=== PATIENT | male | born 2000 | race Caucasian/White ===

== ENCOUNTER 2020-04-24 11:31 | Inpatient (IN) | payer OTHER ==
--- NOTE | 2020-04-24 11:41 | BHS.RME ---
Substance Use & Tx History - Substance Use History Other Opiates/Synthetics Substance amount: Percocet 2-3 tabs Frequency of use: Less than 3 times per week Substance route: Oral Date of Last Use: 04/17/20 Marijuana/Hashish Substance amount: 2 blunts Frequency of use: Daily Substance route: Smoking Date of Last Use: 04/17/20 Physical/Psych/Mental Status - Behavior General Behavior: Decreased activity Eye Contact: Normal - Cooperativeness Cooperativeness: Cooperative - Thinking Thought Processes: Tight Thought content: Future oriented - Physical Health Problems Is patient presently having any pain?: No Does patient presently have any injuries (include location): No Does patient currently have a fever: No COWS - Scale Resting Pulse: 1= [place] 81-100 Sweatin= Chills/Flushing Restless Observation: 0= Sits Still Pupil Size: 1= Pupils >than Normal Bone or Joint Aches: 0= None Runny Nose/ Eye Tearin= None GI Upset > 30mins: 0= None Tremor Observation: 0= None Yawning Observation: 0= None Anxiety or Irritability: 0= None Goose Flesh Skin: 0=Smooth Skin COWS Score: 3
[2020-04-24 15:33] VITALS: BMI 25.7
--- NOTE | 2020-04-24 15:48 | HP ---
COWS - Scale Resting Pulse: 1= [place] 81-100 Sweatin= Chills/Flushing Restless Observation: 0= Sits Still Pupil Size: 1= Pupils >than Normal Bone or Joint Aches: 0= None Runny Nose/ Eye Tearin= None GI Upset > 30mins: 0= None Tremor Observation: 0= None Yawning Observation: 0= None Anxiety or Irritability: 0= None Goose Flesh Skin: 0=Smooth Skin COWS Score: 3 CIWA Score - Admission Criteria OASAS Guidelines: Admission for Medically Managed Detox: Requires at least one of the followin. CIWA greater than 12 2. Seizures within the past 24 hours 3. Delirium tremens within the past 24 hours 4. Hallucinations within the past 24 hours 5. Acute intervention needed for co occurring medical disorder 6. Acute intervention needed for co occurring psychiatric disorder 7. Severe withdrawal that cannot be handled at a lower level of care (continued vomiting, continued diarrhea, abnormal vital signs) requiring intravenous medication and/or fluids 8. Admitting History and Physical - Admission Chief Complaint: Mr. Lorenzana is a 19 yo young man who presents for rehab admission. History of Present Illness: Mr. Lorenzana is a 19 yo young man who presents for rehab admission. He states "that night scared me, I want to get better for myself and my family". He was approved for admission yesterday, but no beds were available. He then was discharged from [facility], went home and presents today for rehab admission. Rapid COVID is negative today. He was at [facility] for an overdose. Of note UDS: benzo, THC and pupils 3mm Pt became unresponsive at [facility]. EMS called, tx with narcan In ED of [facility]: treated with another dose of narcan Labs notable for elevated WBC then trended down to normal, HIV negative, Hep C neg, blood and urine cultures negatie Chest xray unremarkable PMH: none PSH: none Psych: hx of ADHD, bipolar, xanax misuse, opiate use, prior psych admission at [facility] February 2016, hx of auditory hallucinations in the context of intoxication ED at [facility] SOC: lives with parents Legal: multiple arrests for stealing, drug related charges FH: 3 week old daughter at home Substance Use History Other Opiates/Synthetics Substance amount: Percocet 2-3 tabs Frequency of use: Less than 3 times per week Substance route: Oral Date of Last Use: 04/17/20 Marijuana/Hashish Substance amount: 2 blunts Frequency of use: Daily Substance route: Smoking Date of Last Use: 04/17/20 Substance Use History Other Opiates/Synthetics Substance amount: Percocet 2-3 tabs Frequency of use: daily Substance route: Oral Date of Last Use: 04/17/20 First use age 19y Marijuana/Hashish Substance amount: 2 blunts Frequency of use: Daily Substance route: Smoking Date of Last Use: 04/17/20 History Source: Patient Limitations to Obtaining History: No Limitations Admission ROS S - HPI Allergies/Adverse Reactions: Allergies Allergy/AdvReac Type Severity Reaction Status Date / Time No Known Allergies Allergy Verified 04/24/20 12:17 Exam Limitations: No Limitations - Ebola screening Have you traveled outside of the country in the last 21 days: No Have you been sick,other than usual withdrawal symptoms: No Do you have a fever: No - Review of Systems Constitutional: Loss of Appetite, Changes in sleep EENT: reports: No Symptoms Reported Respiratory: reports: No Symptoms reported Cardiac: reports: No Symptoms Reported GI: reports: No Symptoms Reported : reports: No Symptoms Reported Musculoskeletal: reports: No Symptoms Reported Integumentary: reports: No Symptoms Reported Neuro: reports: No Symptoms reported Endocrine: reports: No Symptoms Reported Hematology: reports: No Symptoms Reported Psychiatric: reports: No Sypmtoms Reported Patient History - Smoking Cessation Smoking history: Never smoked Initiated information on smoking cessation: No Admission Physical Exam [facility] - Vital Signs Vital Signs: Vital Signs - 24 hr 04/24/20 15:31 Temperature 97.6 F Pulse Rate 84 Respiratory 18 Rate Blood Pressure 107/69 - Physical General Appearance: Yes: No Apparent Distress, Nourished, Appropriately Dressed HEENTM: Yes: EOMI, Hearing grossly Normal, Normocephalic, Normal Voice Respiratory: Yes: Lungs Clear, No Respiratory Distress, No Accessory Muscle Use Neck: Yes: Within Normal Limits, Supple Breast: Yes: Breast Exam Deferred Cardiology: Yes: Regular Rhythm, Regular Rate Abdominal: Yes: Normal Bowel Sounds, Non Tender Genitourinary: Yes: Other (deferred) Back: Yes: Normal Inspection Musculoskeletal: Yes: full range of Motion, Gait Steady Extremities: Yes: Normal Inspection, Normal Range of Motion, Non-Tender Neurological: Yes: Alert, Normal Response Integumentary: Yes: Within Normal Limits Cleared for Admission S - Detox or Rehab [facility] Level of Care: Medically Supervised Breathalyzer - Breathalyzer Breathalyzer: 0 Urine Drug Screen - Test Device Lot number: [id number] Expiration date: 10/24/21 - Control Is test valid?: Yes - Results Drug screen NEGATIVE: No Urine drug screen results: THC-Marijuana Inpatient Rehab Admission - Rehab Decision to Admit Inpatient rehab admission?: Yes - Initial Determination Are CD services needed?: Yes Free of communicable disease: Yes Not in need of hospitalization: Yes - Rehab Admission Criteria Previous failed treatment: Yes Poor recovery environment: Yes Comorbidities: Yes Lacks judgement: Yes Patient is meeting Inpatient Rehab admission criteria:: Yes
[2020-04-24] MEDS ORDERED: ACETAMINOPHEN 325 MG TABLET (FP) PO PRN (15:53)
[2020-04-24] MEDS ORDERED: guaiFENesin 200 MG/10 ML 10 ML UNIT-DOSE CUPS PO PRN (15:53)
[2020-04-24] MEDS ORDERED: MAG HYDROX/AL HYDROX/SIMETH 30 ML UNIT-DOSE CUP PO PRN (15:53)
[2020-04-24] MEDS ORDERED: IBUPROFEN 400 MG TABLET (FP) PO PRN (15:53)
[2020-04-24] MEDS ORDERED: LOPERAMIDE HCL 2 MG CAPSULE PO PRN (15:53)
[2020-04-24] MEDS ORDERED: MAGNESIUM CITRATE 300 ML BOTTLE PO PRN (15:53)
[2020-04-24] MEDS ORDERED: P-EPHED 60MG/TRIPROLIDI 2.5MG TABLET PO PRN (15:53)
[2020-04-24] MEDS ORDERED: MAGNESIUM HYDROX 2400MG/30ML ORAL SUSPENSION 30 ML CUP PO PRN (15:53)
[2020-04-24] MEDS ORDERED: TUBERCULIN PPD 5 TU/0.1ML VIAL ID ONE (17:04)
[2020-04-24] MEDS: hydrOXYzine PAMOATE 25 MG CAPSULE (FP) PO SCH ×2 (17:20→21:47)
[2020-04-24 17:52] LABS: HEMATOCRIT 45.7 % (35.4-49); HEMOGLOBIN 15.5 GM/dL (11.7-16.9); MCH 30.8 pg (25.7-33.7); MCHC 33.9 g/dl (32.0-35.9); MEAN CELL VOLUME 90.7 fl (80-96); MEAN PLT VOLUME 11.7 fl (7.5-11.1); PLATELET COUNT 208 K/MM3 (134-434); RBC 5.04 M/mm3 (4.00-5.60); RDW 13.5 % (11.9-15.9); WHITE BLOOD COUNT 7.4 K/mm3 (4.0-10.0)
[2020-04-24 17:58] LABS: ALBUMIN 4.3 g/dl (3.4-5.0); BILIRUBIN,TOTAL 1.3 mg/dL (0.2-1); BLOOD UREA NITROGEN 9.8 mg/dL (7-18); CREATININE 0.8 mg/dL (0.55-1.3); POTASSIUM 4.2 mmol/L (3.5-5.1); TOT PROT 9.1 g/dl (6.4-8.2)
[2020-04-24 18:21] LABS: SICKLE CELL SCREEN NEGATIVE (NEGATIVE)
[2020-04-24] MEDS: MELATONIN 5 MG TABLETS PO SCH (21:47)
[2020-04-24] MEDS: THIAMINE HCL 100 MG TABLET (FP) PO SCH (21:48)
[2020-04-25 08:12] VITALS: BP 132/63; PULSE 91; TEMP 97.7
[2020-04-25] MEDS: hydrOXYzine PAMOATE 25 MG CAPSULE (FP) PO SCH ×3 (08:46→13:06)
[2020-04-25] MEDS: PRENATAL VITAMINS W/ FOLIC ACID TABLET (FP) PO SCH (10:44)
--- NOTE | 2020-04-25 13:16 | CONSULT ---
[facility] Psychiatric Consult - Data Date of interview: 04/25/20 Admission source: [facility] Identifying data: Patient is a 19 year old single male, father of one, unemployed, domiciled, and is financially supported by family. This is patient's first admission to rehab at [facility]. Patient admitted to for opiate dependence. Substance Abuse History: Substance Use History. Other Opiates/Synthetics. Substance amount: Percocet 2-3 tabs. Frequency of use: Less than 3 times per week. Substance route: Oral. Date of Last Use: 04/17/20. Marijuana/Hashish. Substance amount: 2 blunts. Frequency of use: Daily. Substance route: Smoking. Date of Last Use: 04/17/20. Substance Use History. Other Opiates/Synthetics. Substance amount: Percocet 2-3 tabs. Frequency of use: daily. Substance route: Oral. Date of Last Use: 04/17/20. First use age 19y. Marijuana/Hashish. Substance amount: 2 blunts. Frequency of use: Daily. Substance route: Smoking. Date of Last Use: 04/17/20. History Source: Patient. Limitations to Obtaining History: No Limitations Medical History: denies. Psychiatric History: Patient's only psychiatric contact occured at 14 years of age after he was admitted to [facility] due to mood dysregulation secondary to alcohol and marijuana use. Mr. Lorenzana was admitted for two weeks, diagnosed with ADHD + Bipolar disorder and treated with psychotropic medications. Patient unable to recall medications prescribed. After discharge patient did not follow up with treatment and therefore has not seen a psychiatrist since. No reported history of suicide attempt. At present patient reports feeling. Physical/Sexual Abuse/Trauma History: Denies. Mental Status Exam - Mental Status Exam Alert and Oriented to: Time, Place, Person Cognitive Function: Good Patient Appearance: Well Groomed Mood: Sad Affect: Mood Congruent Patient Behavior: Appropriate, Cooperative Speech Pattern: Appropriate Voice Loudness: Normal Thought Process: Goal Oriented Thought Disorder: Not Present Hallucinations: Denies Suicidal Ideation: Denies Homicidal Ideation: Denies Insight/Judgement: Poor Sleep: Poorly Appetite: Fair Muscle strength/Tone: Normal Gait/Station: Normal Psychiatric Findings - Problem List ([place] 1, 2,3) (1) Marijuana dependence Current Visit: Yes Status: Acute (2) Opiate dependence Current Visit: Yes Status: Acute (3) History of ADHD Current Visit: No Status: Chronic (4) Substance-induced sleep disorder Current Visit: Yes Status: Acute - Initial Treatment Plan Initial Treatment Plan: Psychoeducation provided. Rehab in progress. 1) Will d/c Vistaril 25mg q4h. 2) Will order Belsomra 10mg HS PRN + Vistaril 50mg q6h for anxiety. Benefits and side effects discussed. Verbal consent given.
[2020-04-25] MEDS ORDERED: hydrOXYzine PAMOATE 50 MG CAPSULE (FP) PO PRN (13:28)
[2020-04-25] MEDS: MELATONIN 5 MG TABLETS PO SCH (21:30)
[2020-04-25] MEDS: hydrOXYzine PAMOATE 50 MG CAPSULE (FP) PO PRN (21:30)
[2020-04-25] MEDS: SUVOREXANT 10 MG TABLET PO PRN (21:30)
[2020-04-25] MEDS: THIAMINE HCL 100 MG TABLET (FP) PO SCH (21:30)
[2020-04-26] MEDS: PRENATAL VITAMINS W/ FOLIC ACID TABLET (FP) PO SCH (09:55)
[2020-04-26] MEDS: hydrOXYzine PAMOATE 50 MG CAPSULE (FP) PO PRN ×3 (09:55→23:46)
[2020-04-26] MEDS: SUVOREXANT 10 MG TABLET PO PRN (21:19)
[2020-04-26] MEDS: MELATONIN 5 MG TABLETS PO SCH (21:20)
[2020-04-26] MEDS: THIAMINE HCL 100 MG TABLET (FP) PO SCH (21:20)
[2020-04-27 01:08] LABS: EPI CELLS 10 /uL (0-25.1); HYALINE CASTS 3 /uL (0-3.1); URINE APPEARANCE CLEAR; URINE BACTERIA 5 /uL (0-1359); URINE BILIRUBIN NEGATIVE (NEGATIVE); URINE COLOR DK YELLOW; URINE GLUCOSE (UA) NEGATIVE (NEGATIVE); URINE KETONE TRACE (NEGATIVE); URINE LEUK ESTERASE TRACE (NEGATIVE); URINE NITRITE NEGATIVE (NEGATIVE); URINE PROTEIN TRACE (NEGATIVE); URINE RBC 33 /uL (0-23.9); URINE WBC 44 /uL (0-25.8)
[2020-04-27] MEDS: PRENATAL VITAMINS W/ FOLIC ACID TABLET (FP) PO SCH (09:39)
[2020-04-27] MEDS: hydrOXYzine PAMOATE 50 MG CAPSULE (FP) PO PRN ×3 (09:40→23:35)
[2020-04-27] MEDS: THIAMINE HCL 100 MG TABLET (FP) PO SCH (21:29)
[2020-04-27] MEDS: SUVOREXANT 10 MG TABLET PO PRN (21:29)
[2020-04-27] MEDS: MELATONIN 5 MG TABLETS PO SCH (21:29)
[2020-04-28] MEDS: PRENATAL VITAMINS W/ FOLIC ACID TABLET (FP) PO SCH (09:42)
[2020-04-28] MEDS: hydrOXYzine PAMOATE 50 MG CAPSULE (FP) PO PRN ×3 (09:44→22:50)
[2020-04-28] MEDS: SUVOREXANT 10 MG TABLET PO PRN (21:13)
[2020-04-28] MEDS: THIAMINE HCL 100 MG TABLET (FP) PO SCH (21:13)
[2020-04-28] MEDS: MELATONIN 5 MG TABLETS PO SCH (21:13)
[2020-04-29] MEDS: PRENATAL VITAMINS W/ FOLIC ACID TABLET (FP) PO SCH (09:50)
--- NOTE | 2020-04-29 09:54 | DS ---
[facility] Rehab Discharge Summary - [facility] Rehab Discharge Summary Admission Date: 04/24/20 Discharge Date: 04/29/20 - History Present History: Cannabis dependence, Opioid dependence Pertinent Past History: ADHD - Discharge Physical Exam Vital Signs: Vital Signs Temperature 97.7 F 04/25/20 07:10 Pulse Rate 91 H 04/25/20 07:10 Respiratory Rate 18 04/25/20 07:10 Blood Pressure 132/63 04/25/20 07:10 O2 Sat by Pulse Oximetry (%) 97 04/29/20 07:11 General;WDWN male, Alert o x 3, nad Cardiac:s1 s2,rrr lungs:ctab abdomen:soft,flat, +bs,nt,nd MSK/Skin:Active FROM, all limbs; oob ambulating with steady gait; no edema, skin intact. Pertinent Admission Physical Exam Findings: Laboratory Tests 04/24/20 04/24/20 04/24/20 12:15 15:15 15:15 WBC 7.4 RBC 5.04 Hgb 15.5 Hct 45.7 MCV 90.7 MCH 30.8 MCHC 33.9 RDW 13.5 Plt Count 208 MPV 11.7 H Sickle Cell Screen Negative Sodium 137 Potassium 4.2 Chloride 102 Carbon Dioxide 29 Anion Gap 6 L BUN 9.8 Creatinine 0.8 Est GFR (CKD-EPI)AfAm 150.09 Est GFR (CKD-EPI)NonAf 129.50 Random Glucose 97 Calcium 10.0 Total Bilirubin 1.3 H AST 10 L ALT 15 Alkaline Phosphatase 87 Total Protein 9.1 H Albumin 4.3 Urine Color Urine Appearance Urine pH Ur Specific [place] Urine Protein Urine Glucose (UA) Urine Ketones Urine Blood Urine Nitrite Urine Bilirubin Urine Urobilinogen Ur Leukocyte Esterase Urine WBC (Auto) Urine RBC (Auto) Urine Casts (Auto) U Epithel Cells (Auto) Urine Bacteria (Auto) Syphilis Serology SARS-CoV-2 (PCR) Negative 04/24/20 04/26/20 15:15 19:30 WBC RBC Hgb Hct MCV MCH MCHC RDW Plt Count MPV Sickle Cell Screen Sodium Potassium Chloride Carbon Dioxide Anion Gap BUN Creatinine Est GFR (CKD-EPI)AfAm Est GFR (CKD-EPI)NonAf Random Glucose Calcium Total Bilirubin AST ALT Alkaline Phosphatase Total Protein Albumin Urine Color Dk yellow Urine Appearance Clear Urine pH 7.0 Ur Specific [place] 1.032 Urine Protein Trace Urine Glucose (UA) Negative Urine Ketones Trace H Urine Blood Negative Urine Nitrite Negative Urine Bilirubin Negative Urine Urobilinogen 1.0 Ur Leukocyte Esterase Trace Urine WBC (Auto) 44 Urine RBC (Auto) 33 Urine Casts (Auto) 3 U Epithel Cells (Auto) 10 Urine Bacteria (Auto) 5 Syphilis Serology Non-reactive SARS-CoV-2 (PCR) - Treatment Discharge Condition: Discharge condition good, Outpatient referral accepted Hospital Course: Pt is a 19 y/o male admitted to rehab and requesting early discharge today. Pt states "I feel i don't need [facility] program anymore. I need to go to outpatient". Pt accepted CD aftercare to [facility] CD Outpatient program. - Medication Discharge Medications: Ambulatory Orders Naloxone HCl [Narcan] 4 mg NS ONCE #1 spray 04/29/20 - Medication-Assisted Treatment (MAT) Medication-Assisted Treatment (MAT): No - Discharge Instructions Diet, activity, other medical instructions: Diet:Regular Activity: oob ad destiny Other medical instructions:Follow up with Kim. Dominic @ [facility] /[place], [place] as needed for primary care. - Diagnosis (1) Marijuana dependence Status: Chronic (2) Opiate dependence Status: Chronic Qualifiers: Substance use status: uncomplicated Qualified Code(s): F11.20 - Opioid dependence, uncomplicated (3) History of ADHD Status: Chronic - Follow-up Referral Minutes to complete discharge: 20 - AMA Did Patient Leave Against Medical Advice: No Additional Comments: Narcan use discussed and encouraged pt to follow up with aftercare and remain sober.
== END 2020-04-29 10:00 | disposition home or self-care (01) | DRG 772 ==
LOC: YASAS 11:31 → EDBD 11:31 → Y5N 15:28
PROVIDERS: ADMIT Allergy & Immunology; ATTEND Allergy & Immunology
PROC: HZ42ZZZ Group Counseling for Substance Abuse Treatment, Cognitive-Behavioral (ICD-10-PCS; principal; 2020-04-24)
DX: F11.20 Opioid dependence, uncomplicated (principal); F12.20 Cannabis dependence, uncomplicated; F19.282 Other psychoactive substance dependence with psychoactive substance-induced sleep disorder; F31.9 Bipolar disorder, unspecified; F90.9 Attention-deficit hyperactivity disorder, unspecified type
CPT/HCPCS: 36415; 80053; 81003; 85027; 85660; 86780; C9803; U0003